=== PATIENT | male | born 1945 | race Two or more races ===

== ENCOUNTER 2020-04-13 18:50 | Emergency (ER) | payer OTHER ==
[~2020-04-13] VITALS: Ht 165.1 cm; Wt 74.8 kg
[2020-04-13] MEDS ORDERED: PROAIR HFA8.5 GM (19:08)
[2020-04-13] MEDS ORDERED: SYMBICORT 16010.2 GM (19:08)
[2020-04-13] MEDS ORDERED: SINGULAIR10 MG (19:09)
[2020-04-13] MEDS ORDERED: CARBIDOPA-LEVO1 EAC9 (19:10)
[2020-04-13] MEDS ORDERED: MILLIPRED5 MG (19:10)
[2020-04-13] MEDS ORDERED: GRALISE600 MG (19:10)
== END 2020-04-14 12:52 | disposition home or self-care (01) ==
LOC: ER 18:50 → EDBD 19:21 → ER 19:21
DX: J45.998 Other asthma (principal); Z03.818 Encounter for observation for suspected exposure to other biological agents ruled out

== ENCOUNTER 2020-05-05 15:20 | Outpatient (CLI) | payer OTHER ==
[~2020-05-05 15:20] MED LIST: CARBIDOPA-LEVO1 EAC9; GRALISE600 MG; MILLIPRED5 MG; PROAIR HFA8.5 GM; SINGULAIR10 MG; SYMBICORT 16010.2 GM
== END 2020-05-05 15:24 ==
LOC: RAD 15:20
DX: I10 Essential (primary) hypertension (principal)

== ENCOUNTER 2021-05-14 06:17 | Emergency (ER) | payer OTHER ==
[~2021-05-14] VITALS: Ht 180.3 cm; Wt 86.2 kg
[2021-05-14] MEDS ORDERED: TYLENOL (06:45)
== END 2021-05-14 13:25 | disposition home or self-care (01) ==
LOC: ER 06:17
DX: J45.998 Other asthma (principal); Z11.52 Encounter for screening for COVID-19

== ENCOUNTER 2023-10-26 12:57 | Emergency (ER) | payer OTHER ==
[~2023-10-26] VITALS: Ht 177.8 cm; Wt 93.0 kg
[~2023-10-26 12:57] MED LIST changes: +TYLENOL
[2023-10-26 15:31] LABS: HEMATOCRIT 36.4 % (39.0-48.0); HEMOGLOBIN 12.5 g/dL (13-16.00); MEAN CORPUSCULAR HEMOGLOBIN 32.7 pg (27.00-32.0); MEAN CORPUSCULAR HGB CONC 34.4 g/dl (32.0-36.0); PLATELET COUNT 551 K/uL (150-450); RED BLOOD COUNT 3.83 M/uL (4.00-6.00); RED CELL DISTRIBUTION WIDTH 13.5 % (11.5-14.5)
[2023-10-26 15:52] LABS: INR 1.04; PARTIAL THROMBOPLASTIN TIME 34.7 SECONDS (22.0-34.0); PROTHROMBIN TIME 10.9 SECONDS (9.0-11.5)
[2023-10-26 16:04] LABS: ALBUMIN 2.9 gm/dL (3.4-5.0); BILIRUBIN TOTAL 0.43 mg/dL (0.3-1.2); CALCIUM 9.5 mg/dL (8.5-10.1); CREATININE SERUM 0.7 mg/dL (0.70-1.30); GFR 109.07; TOTAL PROTEIN 7.9 gm/dL (6.4-8.2)
[2023-10-26 16:09] LABS: POTASSIUM 4.3 mEq/L (3.5-5.1)
[2023-10-26 16:50] LABS: PH,URINE 5.5 (5.0-8.0); URINE APPEARANCE Turbid; URINE BILIRRUBIN Small (NEGATIVE); URINE BLOOD Moderate; URINE COLOR Red; URINE GLUCOSE Negative (NEGATIVE); URINE LEUKOCYTE Large; URINE NITRATE Positive
[2023-10-26 17:09] LABS: URINE BACTERIA > 9821.5 uL (0.0-1933); URINE EPITHELIAL CELLS > 201.7 uL (0.0-38.8); URINE PROTEIN 100 (NEGATIVE); URINE RBC > 10558.9 uL (0.0-20.8); URINE WBC > 5548.3 uL (0.0-23.2)
[2023-10-26 17:10] LABS: URINE YEAST NEGATIVE /hpf
[2023-10-26] MEDS ORDERED: CIPROFLOXACIN IN 5 % DEXTROSE 400 MG/200 ML PIGGYBAG IV STA (17:39)
[2023-10-26] MEDS ORDERED: CIPRO500 MG PO (20:02)
== END 2023-10-26 23:39 | disposition home or self-care (01) ==
LOC: ER 12:58
PROVIDERS: General Practice
DX: N39.0 Urinary tract infection, site not specified (principal); B96.20 Unspecified Escherichia coli [E. coli] as the cause of diseases classified elsewhere; I10 Essential (primary) hypertension
CPT/HCPCS: 36415; 51702; 96365; 99283; J0744